=== PATIENT | female | born 1955 | race Hispanic/Latino ===

== ENCOUNTER 2022-05-08 18:28 | Emergency (ER) | payer MEDICAID, SELFPAY ==
[2022-05-08 19:31] LABS: Hemoglobin 13.8 g/dL (12.0-16.0); Mean Corpuscular Hemoglobin 30.7 pg (27.0-31.0); Mean Corpuscular Volume 87.8 fL (78.0-98.0); Mean Platelet Volume 6.2 fL (7.4-10.4); Platelet Count 231 thou/uL (130-400); RBC Distribution Width 12.3 % (11.5-14.5); Red Blood Cell (RBC) Count 4.51 mill/uL (4.20-5.40); White Blood Cell (WBC) Count 5.5 thou/uL (4.8-10.8)
[2022-05-08 19:35] LABS: Bilirubin Negative (Negative); Blood, Urine Negative (Negative); Clarity Clear (Clear); Glucose, Urine (Dipstick) Negative (Negative); Ketone, Urine Negative (Negative); Leukocyte Negative (Negative); Nitrite Negative (Negative); Protein, Urine (Dipstick) Negative (Neg-Trace); Urobilinogen 0.2 mg/dL (Less than 2); pH, Urine 5.5 (5.0-9.0)
[2022-05-08 19:37] LABS: Specific Gravity, Urine 1.008 (1.002-1.036)
[2022-05-08] MEDS ORDERED: Morphine 4 MG/ML VIAL ONE (19:44)
[2022-05-08 19:45] LABS: ALT (SGPT) 22 U/L (8-55); AST (SGOT) 19 U/L (5-34); Alkaline Phosphatase 106 U/L (40-110); Anion Gap 15 mmol/L (10-20); BUN (Urea Nitrogen) 13 mg/dL (9.8-20.1); Bilirubin, Total 0.3 mg/dL (0.2-1.2); Calc. Creatinine Clearance 0 mL/min (70-130); Calcium 8.9 mg/dL (7.8-10.44); Carbon Dioxide 18 mmol/L (23-31); Chloride 107 mmol/L (98-107); Estimated GFR 54; Glucose 118 mg/dL (80-115); Lipase 26 U/L (8-78); Potassium 3.8 mmol/L (3.5-5.1); Sodium 136 mmol/L (136-145)
[2022-05-08] MEDS ORDERED: diphenhydrAMINE 50 MG/ML VIAL ONE (19:54)
[2022-05-08 20:25] LABS: Lymphocytes 23 % (21-51); MDiff Complete? YES; Monocytes 12 % (0-10); Neutrophil 65 % (42-75)
== END 2022-05-08 21:12 | disposition home or self-care (01) ==
LOC: BURERS 18:28
DX: R10.30 Lower abdominal pain, unspecified (principal); K21.9 Gastro-esophageal reflux disease without esophagitis
CPT/HCPCS: 36415; 74176; 80053; 81003; 83605; 83690; 85025; 93005; 96374; 96375; J1200; J2270